=== PATIENT | female | born 1975 | race Caucasian/White ===

== ENCOUNTER 2024-07-08 21:47 | Emergency (ER) | payer MEDICAID ==
[~2024-07-08] VITALS: Ht 157.5 cm; Wt 54.5 kg
[~2024-07-08 21:47] MED LIST: INDO50CA96 PO
[2024-07-08 21:48] VITALS: BP 150/111; PULSE 86; RESP 15; O2SAT 97
[2024-07-08] MEDS: amox tr/potassium clavulanate 875/125mg TAB PO ONE (23:00)
[2024-07-08] MEDS: TETanus/Pertussis (Acell)/Diphther VAC/PF (Tdap-Adult) 0.5ml syringe IMVAC ONE (23:00)
[2024-07-08] MEDS ORDERED: AMOX-117 PO (23:07)
[2024-07-08 23:45] VITALS: TEMP 98.6
== END 2024-07-08 23:53 | disposition home or self-care (01) ==
LOC: ER 21:47
DX: S61.452A Open bite of left hand, initial encounter (principal); Z98.51 Tubal ligation status; Z88.8 Allergy status to other drugs, medicaments and biological substances; Z79.899 Other long term (current) drug therapy; Z72.89 Other problems related to lifestyle; W54.0XXA Bitten by dog, initial encounter; Y93.89 Activity, other specified; Y92.89 Other specified places as the place of occurrence of the external cause; Y99.8 Other external cause status
CPT/HCPCS: 73130; 90471; 90715; 99283

== ENCOUNTER 2024-09-22 14:54 | Emergency (ER) | payer MEDICAID ==
[~2024-09-22] VITALS: Ht 157.5 cm; Wt 58.5 kg
[2024-09-22 15:25] LABS: BASOPHILS # (AUTO) 0.1 X10'3 (0-0.2); BASOPHILS % (AUTO) 0.8 % (0-1); EOSINOPHILS # (AUTO) 0.1 X10'3 (0-0.9); EOSINOPHILS % (AUTO) 1.1 % (0-6); HEMATOCRIT 41.9 % (35.0-45.0); HEMOGLOBIN 13.9 g/dl (12.0-16.0); LYMPHOCYTES # (AUTO) 3.6 X10'3 (1.1-4.8); LYMPHOCYTES % (AUTO) 41.6 % (21-51); MEAN CORPUSCULAR HEMOGLOBIN 28.9 PG (27.0-31.0); MEAN CORPUSCULAR HGB CONC 33.1 g/dL (33.0-36.5); MEAN CORPUSCULAR VOLUME 87.3 FL (78-98); MEAN PLATELET VOLUME 9.5 FL (7.4-10.4); MONOCYTES # (AUTO) 0.3 X10'3 (0-0.9); MONOCYTES % (AUTO) 3.8 % (2-12); NEUTROPHILS # (AUTO) 4.5 X10'3 (1.8-7.7); NEUTROPHILS % (AUTO) 52.7 % (42-75); PLATELET COUNT 233 X10'3 (140-440); RED CELL DISTRIBUTION WIDTH 13.2 % (11.5-14.5); WHITE BLOOD COUNT 8.6 X10'3 (4.5-11.0)
[2024-09-22 15:47] LABS: ALANINE AMINOTRANSFERASE 29 U/L (12-78); ALBUMIN 4.2 G/DL (3.4-5.0); ALBUMIN/GLOBULIN RATIO 1.3 (1.1-1.5); ALKALINE PHOSPHATASE 84 IU/L (46-116); ANION GAP 9 (8-16); ASPARTATE AMINO TRANSFERASE 23 U/L (10-37); BILIRUBIN,TOTAL 0.4 MG/DL (0.1-1.0); BLOOD UREA NITROGEN 10 MG/DL (7-18); BUN/CREATININE RATIO 11.8 (10.0-20.0); CALCIUM 8.7 MG/DL (8.5-10.1); CHLORIDE 106 MMOL/L (99-107); CREATININE 0.85 MG/DL (0.40-0.90); GLUCOSE 124 MG/DL (70-104); POTASSIUM 3.7 MMOL/L (3.5-5.1); SODIUM 141 MMOL/L (135-145); TOTAL CARBON DIOXIDE 26.5 MMOL/L (24-32); TOTAL PROTEIN 7.5 G/DL (6.4-8.2); eCRCL 63 ML/MIN; eGFR 71 ML/MIN
[2024-09-22 15:55] LABS: PRO BRAIN NATRIURETIC PEPTIDE 79 PG/ML (0-125)
[2024-09-22] MEDS: normal saline 1000ml 1,000 ML IV ONE ×2 (16:40→18:32)
[2024-09-22 17:04] LABS: THYROID STIMULATING HORMONE 0.91 ulU/ml (0.34-4.50)
[2024-09-22 17:32] VITALS: TEMP 98.8
[2024-09-22] MEDS ORDERED: iohexol 350MG/ML 100ml bottle IV ONE (19:00)
[2024-09-22 19:12] LABS: BILIRUBIN,URINE NEGATIVE (Neg); CLARITY,URINE CLEAR (Clear); COLOR,URINE YELLOW (Yellow); GLUCOSE, URINE NEGATIVE (Neg); KETONES,URINE NEGATIVE (Neg); LEUKOCYTE ESTERASE ,URINE SMALL (Neg); NITRITES, URINE NEGATIVE (Neg); OCCULT BLOOD,URINE NEGATIVE (Neg); PROTEIN,URINE NEGATIVE (Neg); UROBILINOGEN,URINE 0.2 E.U/dL (0.2-1.0)
[2024-09-22 19:17] LABS: BACTERIA,URINE FEW /HPF (Neg); MUCUS STRANDS MODERATE /LPF (Neg); RBC,URINE NONE SEEN /HPF (0-2); SQUAMOUS EPITHELIAL CELL,UR FEW /LPF (FEW); UA COLLECTION TYPE CLN CATCH MIDSTREAM
[2024-09-22 19:31] LABS: URINE AMPHETAMINE SCREEN NEGATIVE (Neg); URINE BARBITUATE SCREEN NEGATIVE (Neg); URINE BENZODIAZEPINES SCREEN NEGATIVE (Neg); URINE CANNABINOID SCREEN POSITIVE (Neg); URINE COCAINE SCREEN NEGATIVE (Neg); URINE METHADONE SCREEN NEGATIVE (Neg); URINE OPIATE SCREEN NEGATIVE (Neg); URINE PHENCYCLIDINE SCREEN NEGATIVE (Neg)
[2024-09-22] MEDS: propranolol 10mg tablet PO ONE (20:16)
[2024-09-22 21:00] VITALS: BP 132/86; PULSE 66; RESP 14; O2SAT 98
[2024-09-22 22:20] LABS: ETHANOL < 10 MG/DL (<10)
== END 2024-09-22 22:35 | disposition home or self-care (01) ==
LOC: ER 14:54
DX: F10.129 Alcohol abuse with intoxication, unspecified (principal); E86.0 Dehydration; Z88.8 Allergy status to other drugs, medicaments and biological substances; Z98.51 Tubal ligation status; Y90.9 Presence of alcohol in blood, level not specified
CPT/HCPCS: 36415; 70450; 70496; 70498; 71045; 80053; 80305; 80320; 81001; 82948; 83880; 84443; 84484; 85025; 93005; 96360; 96361; 99285; J7030; Q9967

== ENCOUNTER 2025-03-02 10:14 | Emergency (ER) | payer MEDICAID ==
[~2025-03-02] VITALS: Ht 157.5 cm; Wt 56.8 kg
[2025-03-02 10:25] VITALS: BP 137/96; PULSE 89; RESP 16; O2SAT 99
--- NOTE | 2025-03-02 11:37 | RADIOLOGY REPORT ---
CLINICAL INDICATION: hip pain after fall TECHNIQUE: 1 radiographic views of the pelvis and 2 views of the bilateral hip were obtained. Comparison: None FINDINGS/IMPRESSION: There is no evidence of acute fracture or dislocation. The visualized joint space is well maintained. The alignment is anatomical. There is no radiopaque foreign body.
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
[2025-03-02] MEDS: ketorolac trometh 30MG/ML vial 30 MG/ML VIAL IM ONE (12:58)
[2025-03-02 13:01] VITALS: TEMP 98.4
== END 2025-03-02 13:04 | disposition home or self-care (01) ==
LOC: ER 10:15
DX: M25.551 Pain in right hip (principal); Z98.51 Tubal ligation status; Z72.89 Other problems related to lifestyle; Z88.5 Allergy status to narcotic agent; Z88.8 Allergy status to other drugs, medicaments and biological substances; Z79.899 Other long term (current) drug therapy
CPT/HCPCS: 73522; 99284